=== PATIENT | male | born 1975 | race Hispanic/Latino ===

== ENCOUNTER 2016-10-15 13:34 | Outpatient (CLI) | payer OTHER ==
--- NOTE | 2016-10-15 14:28 | Cat Scan Report ---
CT HEAD WITHOUT CONTRAST INDICATION: Chronic headaches. COMPARISON: None similar at this institution. FINDINGS: Noncontrast head CT demonstrates normal ventricles and sulci without acute or recent infarct, hemorrhage, mass effect or midline shift. No abnormal extra-axial fluid collections. Posterior fossa structures and basilar cisterns appear within normal limits. Symmetric eye globes. Clear paranasal sinuses and mastoid air cells. Rightward nasal septal deviation. Intact calvarium. Persistent metopic suture incidentally noted. Normal overlying scalp soft tissues. Bilateral external auditory canal debris may be directly visualized. Few radiopaque dental material incidentally noted. CONCLUSION: No acute intracranial CT abnormality with few incidental findings, as described. Thank you for the opportunity to participate in this patient's care.
== END 2016-10-15 13:35 | disposition home or self-care (01) ==
LOC: CT 13:34
PROVIDERS: ATTEND Internal Medicine
DX: R51 Headache (principal)
CPT/HCPCS: 70450